=== PATIENT | female | born 1955 | race Caucasian/White ===

== ENCOUNTER 2016-09-03 07:55 | Emergency (ER) | payer OTHER ==
--- NOTE | 2016-09-03 08:08 | UCPHY ---
H & P Time Seen by Provider: 09/03/16 08:03 Patient Type: Established HPI/ROS: 61-year-old female presents complaining of red blotches on her abdomen on the left side she noticed some last night. She took a Benadryl last night and has not really noticed any improvement at this point. She denies fevers chills nausea vomiting diarrhea. She denies shortness of breath and has no mouth swelling. She did to several days of snow shoveling where she had profuse sweating, but did not notice a rash at that time. Review of systems General no fever no chills no weakness HEENT no eye pain no eye discharge. No eye redness, no sore throat Respiratory no cough, no shortness of breath Cardiac no chest pain, no peripheral edema GI no abdominal pain, no diarrhea, no constipation, no nausea, no vomiting no flank pain, no hematuria, no dysuria Musculoskeletal no myalgias, no joint pain Heme no easy bruising, no easy bleeding Endo no polyuria, no polydipsia Skin positive rashes, no pruritus Neuro no syncope, no dizziness, no headaches Psych is no suicidal ideation, no homicidal ideation Past Medical/Surgical History: Hyperlipidemia Hypothyroidism Multiple drug allergies Social History: No alcohol or drug use Smoking Status: Never smoked Physical Exam: Alert and oriented in no acute distress nontoxic appearance, afebrile Atraumatic normocephalic Neck no JVD Lungs clear to auscultation, no respiratory distress Heart regular rate and rhythm Back no CVA tenderness, no vesicular rash Abdomen erythematous maculopapular blanching rash without raised edges without vesicles, no drainage no lymphangitic streak Extremities no cyanosis clubbing edema Constitutional: Initial Vital Signs Temperature (C) 36.6 C 09/03/16 08:14 Heart Rate 85 09/03/16 08:14 Respiratory Rate 18 09/03/16 08:14 Blood Pressure 147/74 H 09/03/16 08:14 O2 Sat (%) 97 09/03/16 08:14 O2 Delivery Mode Room Air Allergies/Adverse Reactions: Penicillins Allergy (Severe, Verified 08/26/14 10:37) Sulfa (Sulfonamide Antibiotics) Allergy (Severe, Verified 08/26/14 10:37) iodine [Iodine] Allergy (Mild, Verified 08/26/14 10:37) doxycycline Allergy (Verified 08/26/14 10:37) Home Medications: Medication Instructions Recorded Levothyroxine 09/03/16 Simvastatin 09/03/16 Trimcinolone 09/03/16 Vit A & D3 in Cod Liver Oil 09/03/16 Medical Decision Making ED Course/Re-evaluation: Patient seen and evaluated for rash Differential diagnosis Heat rash, urticaria, fungal rash Impression Acute dermatitis unknown etiology Will recommend Benadryl q.6 hours p.r.n. itching, triamcinolone cream to larger patches on abdomen Patient advised if worsening to return to Urgent Care and/or to her primary care physician Patient also advised to avoid hot showers and to make an extra effort to keep those areas dry Departure - Departure Disposition: Home, Routine, Self-Care Clinical Impression: Dermatitis Condition: Good Instructions: Dermatitis (ED) Additional Instructions: Benadryl every 6 hours as needed for itching. May apply triamcinolone to irritated area. Follow-up with your primary care physician Referrals: Michelle Apple MD [Primary Care Provider] - As per Instructions - PQRS PQRS Measurement: na
[2016-09-03 08:17] VITALS: BP 147/74; PULSE 85; RESP 18; TEMP 98; O2SAT 97
== END 2016-09-03 08:27 | disposition home or self-care (01) ==
LOC: CED 07:55
DX: L30.9 Dermatitis, unspecified (principal)
CPT/HCPCS: 99213-PO; G0463-PO

== ENCOUNTER 2016-12-28 09:22 | Emergency (ER) | payer OTHER ==
[2016-12-28 09:42] VITALS: BP 149/103; PULSE 85; RESP 16; TEMP 98.4; O2SAT 95
--- NOTE | 2016-12-28 09:43 | EDPHY ---
H & P Time Seen by Provider: 12/28/16 09:30 HPI/ROS: This patient has burning discomfort in her rash under her left breast over the past 3 days increasing in size and discomfort to moderate discomfort. She notes no exacerbating factors. She tried some [id number] antibiotic ointment without improvement. She is applying moist claws as well. She also reports that she has anxiety about breast cancer because of her mother's history of breast cancer. She has a mammogram scheduled in the near future but has not noticed any lumps or pain in the breasts themselves. ROS: No fevers or chills no other constitutional symptoms Integumentary: No skin rash elsewhere. 5 point ROS is otherwise negative. Past Medical/Surgical History: Hypothyroidism Hypercholesterolemia Smoking Status: Never smoked Physical Exam: Physical Exam Vital signs are normal. General: Pleasant moderately obese female No acute distress Lungs: No respiratory distress. Cardiac: Brisk capillary refill is intact throughout. Skin: Patient has a an erythematous rash under her pendulous left breast 3 x 9 cm in size with a small linear component in the fold of the skin that is more prominent with no warmth to touch and gradual failed to normal appearing skin. There is no fluctuance. No petechia or purpura Breasts: No lumps or masses are appreciated. Nipples are normal with no discharge. There is no significant tenderness Neuro: GCS 15 Constitutional: Initial Vital Signs Temperature (C) 36.9 C 12/28/16 09:30 Heart Rate 85 12/28/16 09:30 Respiratory Rate 16 12/28/16 09:30 Blood Pressure 149/103 H 12/28/16 09:30 O2 Sat (%) 95 12/28/16 09:30 O2 Delivery Mode Room Air Allergies/Adverse Reactions: Penicillins Allergy (Severe, Verified 12/28/16 09:42) Sulfa (Sulfonamide Antibiotics) Allergy (Severe, Verified 12/28/16 09:42) iodine [Iodine] Allergy (Mild, Verified 12/28/16 09:42) doxycycline Allergy (Verified 12/28/16 09:42) Home Medications: Medication Instructions Recorded Levothyroxine 09/03/16 Simvastatin 09/03/16 Trimcinolone 09/03/16 Vit A & D3 in Cod Liver Oil 09/03/16 MDM/Departure - MDM ED Course/Re-evaluation: Discussion: Findings are characteristic of yeast skin infection. Clinically this does not appear consistent with cellulitis, abscess. No clinical findings to suggest obvious breast mass/breast cancer currently. - Depart Disposition: Home, Routine, Self-Care Clinical Impression: Skin yeast infection Condition: Good Instructions: Skin Yeast Infection (ED) Additional Instructions: Diagnosis: Skin yeast infection under breasts Plan: After bathing be sure to lift your breast in air dry this area thoroughly. Then apply [id number] Lotrimin Ultra cream 2 times a day until the rash resolves. This will usually improve over a period of 2-5 days. Be sure to continue the cream until its entirely resolved. Follow up with your primary care physician for any ongoing symptoms Return for any significant worsening despite the treatment plan Referrals: Michelle Apple MD [Primary Care Provider] - As per Instructions
== END 2016-12-28 09:53 | disposition home or self-care (01) ==
LOC: CED 09:22
DX: B37.2 Candidiasis of skin and nail (principal)

== ENCOUNTER 2018-04-16 17:31 | Emergency (ER) | payer OTHER ==
[2018-04-16 17:42] VITALS: BP 121/90
--- NOTE | 2018-04-16 18:07 | EDPHY ---
H & P Time Seen by Provider: 04/16/18 17:37 HPI/ROS: CHIEF COMPLAINT: Leg cramps History by patient HISTORY OF PRESENT ILLNESS: 60-year-old woman with a history of hypertension and high cholesterol who is on a statin presents complaining of intermittent cramping in her left upper lateral thigh which she describes as a squeezing cramping feeling which will last for a few minutes but resolved this and she sits down and rests. This began yesterday and has been persistent today. It mostly occurs when she walks or has been up and around for some time. The pain does not go down her leg. She denies any back pain. She denies any numbness or tingling. She denies any redness or leg swelling. She denies any fever. She has never had this before. She has been on a statin for several years. She told her sister about it who thought maybe she should be checked out because of could be a problem with her magnesium. Cramps are not worse at night but seems to be worse when she is up around during the day. Her it is very localized to the left lateral thigh. REVIEW OF SYSTEMS: As in HPI, and all other systems reviewed and are negative Smoking Status: Never smoked Physical Exam: General Appearance: Alert and no distress. Obese Head: Normocephalic, atraumatic Eyes: Pupils equal and round no injection. Extraocular movements are intact. Musculoskeletal: Neck is supple and nontender. Back: No bony tenderness, no CVA tenderness, no sacral or buttock tenderness Extremities: Left leg with full range of motion of left hip, left knee, left ankle and foot. No obvious swelling or deformity. No tenderness. No erythema or calor. DP and PT pulses are 2+ and equal bilaterally, cap refills less than 2 sec. Skin: No rashes or lesions except as described above. Constitutional: Initial Vital Signs Temperature (C) 37.1 C 04/16/18 17:39 Heart Rate 92 04/16/18 17:39 Respiratory Rate 14 04/16/18 17:39 Blood Pressure 121/90 H 04/16/18 17:39 O2 Sat (%) 96 04/16/18 17:39 O2 Delivery Mode Room Air Allergies/Adverse Reactions: Penicillins Allergy (Severe, Verified 04/16/18 17:54) Sulfa (Sulfonamide Antibiotics) Allergy (Severe, Verified 04/16/18 17:54) iodine [Iodine] Allergy (Mild, Verified 04/16/18 17:54) doxycycline Allergy (Verified 04/16/18 17:54) Home Medications: Medication Instructions Recorded Levothyroxine 09/03/16 Simvastatin 09/03/16 Trimcinolone 09/03/16 Vit A & D3 in Cod Liver Oil 09/03/16 MDM/Departure - [facility] ED Course/Re-evaluation: [age] old woman on a statin presents complaining of intermittent leg cramping. Patient is asymptomatic here in the department and her exam is unremarkable. There is no evidence of cellulitis or DVT. She has good pulses and history is inconsistent with claudication. At this point the cause of her intermittent leg cramps are unclear. These may be simple leg cramps or this may be related to her statin. CK was sent and is pending at time dictation. I am recommending the patient follow up with her primary care physician to check the results of the CK or to return if she develops new symptoms including but not limited to fever, redness, persistent pain, leg swelling or other new concerns. I discussed all this with the patient who understands and is agreeable to this plan. - Depart Disposition: Home, Routine, Self-Care Clinical Impression: Leg cramping Condition: Good Instructions: Leg Cramps (ED) Additional Instructions: You were seen by Dr. Shayla Lopez today. Your cramps might be related to your simvastatin medication. We have sent a blood test to measure your CK. Please have Dr. Edwards follow up on this test. Please return to the ER if you're pain becomes out of control, he developed any leg swelling, redness or fever or other new concerning symptoms. Return for any worsening or new concerns. Referrals: Michelle Apple MD [Primary Care Provider] - As per Instructions
[2018-04-16 20:14] LABS: CREATINE KINASE 48 IU/L (0-156)
== END 2018-04-16 18:22 | disposition home or self-care (01) ==
LOC: CED 17:31
DX: R25.2 Cramp and spasm (principal); I10 Essential (primary) hypertension; E78.00 Pure hypercholesterolemia, unspecified